=== PATIENT | male | born 1950 ===

== ENCOUNTER 2017-07-11 21:43 | Observation (INO) | payer OTHER, BC ==
[2017-07-11 22:04] VITALS: BMI 37.1
[2017-07-11] MEDS ORDERED: ASPIRIN 81 MG CHEWABLE TABLETS PO ONE (22:04)
--- NOTE | 2017-07-11 22:04 | PDOC ---
Rapid Medical Evaluation Time Seen by Provider: 07/11/17 21:55 Medical Evaluation: Allergies Allergy/AdvReac Type Severity Reaction Status Date / Time iodine Allergy Unverified 03/23/12 17:19 07/11/17 21:56 I have performed a brief in-person evaluation of this patient. The patient presents with a chief complaint of: pain to neck "cramp" and then chest pain and palpitations today. hx a-fib (on metoprolol), rotator cuff surgery, cervical disc replacements, a- flutter s/p ablation, television repairer francescone Pertinent physical exam findings: well appearing, afib on EKG, HR now 79 I have ordered the following:cardiac workup The patient will proceed to the ED for further evaluation. Discharge Disposition - Diagnosis Chest pain - Referrals - Patient Instructions - Post Discharge Activity
[2017-07-11] MEDS ORDERED: ASPIRIN 81 MG CHEWABLE TABLETS ONE (22:34)
[2017-07-11] MEDS ORDERED: dilTIAZem HCL 50 MG/10 ML - 10 ML VIAL IVPUSH ONE ×2 (22:58→23:25)
[2017-07-11 23:02] LABS: BASO % 1.3 % (0-2.0); EOS % 8.1 % (0-4.5); HEMATOCRIT 48.2 % (35.4-49); HEMOGLOBIN 16.5 GM/dL (11.7-16.9); LYMPH % 26.1 % (8-40); MCH 28.7 pg (25.7-33.7); MCHC 34.3 g/dl (32.0-35.9); MEAN CELL VOLUME 83.5 fl (80-96); MEAN PLT VOLUME 8.2 fl (7.5-11.1); NEUT % 55.5 % (42.8-82.8); PLATELET COUNT 243 K/MM3 (134-434); RBC 5.76 M/mm3 (4.00-5.60); RDW 13.9 % (11.9-15.9); WHITE BLOOD COUNT 12.2 K/mm3 (4.0-10.0)
[2017-07-11] MEDS ORDERED: dilTIAZem HCL 125 MG/25 ML - 25 ML VIAL ONE (23:06)
--- NOTE | 2017-07-11 23:10 | PDOC ---
History of Present Illness - General Chief Complaint: Pain Stated Complaint: AFIB COMPLICATION Time Seen by Provider: 07/11/17 21:55 - History of Present Illness Initial Comments: 07/11/17 23:04 CHIEF COMPLAINT: afib HISTORY OF PRESENT ILLNESS: 67 yo M with hx of a-fib (on metoprolol), rotator cuff surgery, cervical disc replacements, a-flutter s/p ablation, presents to ED with palpitations and chest discomfort s/p "really bad neck pain." Patient reports that he "always has the same problem, my neck starts to hurt and then I feel it in my chest and then I go into a-fib." On arrival patient's HR was 153 on EKG but 79 in RME, patient at this time states he is asymptomatic "and I don' t feel the a-fib anymore." Patient's crepe laminator operator is MD Barbosa. PAST MEDICAL HISTORY: as per HPI FAMILY HISTORY: Denies SOCIAL HISTORY: Denies tobacco, alcohol, illicit drug use. SURGICAL HISTORY: cardiac ablation, rotator cuff, cervical disc replacement ALLERGIES: iodine REVIEW OF SYSTEMS General/Constitutional: Denies fever or chills. Denies weakness, weight change. HEENT: Denies change in vision. Denies ear pain or discharge. Denies sore throat. Cardiovascular: Chest pain, palpitatoins. Respiratory: Denies cough, wheezing, or hemoptysis. Gastrointestinal: Denies nausea, vomiting, diarrhea or constipation. Denies rectal bleeding. Genitourinary: Denies dysuria, frequency, or change in urination. Musculoskeletal: Denies joint or muscle swelling or pain. Denies neck or back pain. Skin and breasts: Denies rash or easy bruising. Neurologic: Denies headache, vertigo, loss of consciousness, or loss of sensation. PHYSICAL EXAM General Appearance: Well-appearing, appropriately dressed. No apparent distress. HEENT: EOMI, PERRLA, normal ENT inspection, normal voice, TMs normal, pharynx normal. No conjunctival pallor. No photophobia, scleral icterus. Neck: Supple. Trachea midline. No tenderness, rigidity, carotid bruit, stridor , lymphadenopathy, or thyromegaly. Respiratory/Chest: Lungs CTAB. No shortness of breath, chest tenderness, respiratory distress, accessory muscle use. No crackles, rales, rhonchi, stridor , wheezing, dullness Cardiovascular: Tachy to 150-10s. Irregular rate and rhythm. Vascular Pulses: Dorsalis-Pedis (R): 2+, Dorsalis-Pedis (L): 2+ Gastrointestinal/Abdominal: Normal bowel sounds. Abdomen soft, non-distended. No tenderness or rebound tenderness. No organomegaly, pulsatile mass, guarding , hernia, hepatomegaly, splenomegaly. Lymphatic: No adenopathy, tenderness. Musculoskeletal/Extremities: Normal inspection. FROM of all extremities, normal capillary refill. Pelvis Stable. No CVA tenderness. No tenderness to extremities, pedal edema, swelling, erythema or deformity. Integumentary: Appropriate color, dry, warm. No cyanosis, erythema, jaundice or rash Neurologic: equipment engineering technician II-XII intact. Fully oriented, alert. Appropriate mood/affect. Motor strength 5/5. No appreciable EOM palsy, facial droop or sensory deficit. Past History - Past Medical History Allergies/Adverse Reactions: Allergies Allergy/AdvReac Type Severity Reaction Status Date / Time iodine Allergy Verified 07/11/17 21:59 Home Medications: Ambulatory Orders Aspirin [ASA -] 162 mg PO DAILY 07/11/17 Metoprolol Succinate [Toprol Xl -] 25 mg PO DAILY 07/11/17 Cardiac Disorders: Yes (A-fib) COPD: No - Surgical History Cardiac Surgery: Yes (Ablation for cardiac flutter) - Suicide/Smoking/Psychosocial Hx Smoking History: Never smoked Have you smoked in the past 12 months: No Information on smoking cessation initiated: No Hx Alcohol Use: No Drug/Substance Use Hx: No Substance Use Type: None *Physical Exam - Vital Signs Last Vital Signs Temp Pulse Resp BP Pulse Ox 98.3 F 149 H 20 122/68 96 07/11/17 22:00 07/12/17 01:50 07/11/17 23:44 07/12/17 01:50 07/11/17 23:44 ED Treatment Course - LABORATORY CBC & Chemistry Diagram: 07/11/17 22:45 07/11/17 22:45 - ADDITIONAL ORDERS Additional order review: Laboratory Results 07/11/17 07/11/17 22:45 22:45 PT with INR 10.70 INR 0.95 Sodium 140 Potassium 3.9 Chloride 104 Carbon Dioxide 27 Anion Gap 9 BUN 19 H Creatinine 1.1 Creat Clearance w eGFR > 60 Random Glucose 125 H Calcium 8.5 Magnesium 2.0 Total Bilirubin 0.5 AST 28 ALT 44 Alkaline Phosphatase 90 Creatine Kinase 297 Creatine Kinase Index 1.8 CK-MB (CK-2) 5.538 H Troponin I < 0.02 Total Protein 7.6 Albumin 3.7 07/11/17 22:45 RBC 5.76 H MCV 83.5 MCHC 34.3 RDW 13.9 MPV 8.2 Neutrophils % 55.5 Lymphocytes % 26.1 Monocytes % 9.0 Eosinophils % 8.1 H Basophils % 1.3 - RADIOLOGY Radiology Studies Ordered: Category Date Time Status CHEST PA & LAT [RAD] Stat Radiology 07/12/17 00:02 Taken - Medications Given in the ED: ED Medications Discontinued Medications Generic Name Dose Route Start Last Admin Trade Name Freq PRN Reason Stop Dose Admin Aspirin 162 mg 07/11/17 22:04 07/11/17 23:42 Asa - PO 07/11/17 22:05 Not Given ONCE ONE Diltiazem HCl 10 mg 07/11/17 22:58 07/11/17 23:27 Cardizem Injection - IVPUSH 07/11/17 22:59 10 mg ONCE ONE Administration Diltiazem HCl 30 mg 07/12/17 00:00 07/12/17 00:21 Cardizem - PO 30 mg Q6HPO KENDY Administration Diltiazem HCl 10 mg 07/11/17 23:25 07/11/17 23:41 Cardizem Injection - IVPUSH 07/11/17 23:26 10 mg ONCE ONE Administration Enoxaparin Sodium 100 mg 07/11/17 23:24 07/12/17 00:21 Lovenox - SQ 07/11/17 23:25 100 mg ONCE ONE Administration Diltiazem HCl 125 mg/ Dextrose 125 mls @ 5 mls/hr 07/12/17 00:45 07/12/17 01: 50 IVPB Not Given TITR KENDY Protocol 5 MG/HR Diltiazem HCl 125 mg/ Sodium 125 mls @ 5 mls/hr 07/12/17 01:15 07/12/17 01:49 Chloride IVPB Not Given TITR KENDY Protocol 5 MG/HR Medical Decision Making - Medical Decision Making 07/11/17 23:16 67 yo M with hx of a-fib (on metoprolol), rotator cuff surgery, cervical disc replacements, a-flutter s/p ablation, presents to ED with palpitations and chest discomfort s/p "really bad neck pain." -cardiac workup ordered in RME -EKG showing a-fib with HR 153 Patient HR now 150s-160s again. Will give Cardizem 10 mg IV. 07/11/17 23:31 Discussed case with [facility] Sorens[facility] Will admit to tele obs, patient is to receive cardizem po and anticoags for prophylaxis. Patient HR now 140-150s, will give another 10 mg Cardizem IVPUSH. -Lovenox -Cardizem po q6 Patient rate uncontrolled after cardizem IV and po, will start Cardizem drip. Notified Dr. Sorensen, patient will be admitted to inpatient tele. Discussed case with hospitalist MAITE Hollis who accepts patient for inpatient admission. *DC/Admit/Observation/Transfer Diagnosis at time of Disposition: Chest pain - Discharge Dispostion Admit: Yes - Referrals - Patient Instructions - Post Discharge Activity
[2017-07-11] MEDS ORDERED: ENOXAPARIN NA (PORCINE) 100 MG/1 ML DISP.SYRIN SQ ONE (23:24)
[2017-07-11 23:32] LABS: INR 0.95 (0.82-1.09); PROTHROMBIN TIME (PATIENT) 10.7 SEC (9.98-11.88)
[2017-07-11 23:44] LABS: ALBUMIN 3.7 g/dl (3.4-5.0); ANION GAP 9 (8-16); BILIRUBIN,TOTAL 0.5 mg/dL (0.2-1.0); BLOOD UREA NITROGEN 19 mg/dL (7-18); CALCIUM 8.5 mg/dL (8.5-10.1); CHLORIDE 104 mmol/L (98-107); CO2 27 mmol/L (21-32); CREATININE 1.1 mg/dL (0.7-1.3); GLUCOSE,RANDOM 125 mg/dL (74-106); POTASSIUM 3.9 mmol/L (3.5-5.1); SGOT/AST 28 U/L (15-37); SGPT/ALT 44 U/L (12-78); SODIUM 140 mmol/L (136-145); TOT PROT 7.6 g/dl (6.4-8.2)
[2017-07-11 23:46] LABS: ALK PHOS 90 U/L (45-117)
[2017-07-12] MEDS ORDERED: dilTIAZem HCL 30 MG TABLET (FP) PO SCH
[2017-07-12] MEDS ORDERED: ENOXAPARIN NA (PORCINE) 100 MG/1 ML DISP.SYRIN SQ ONE (00:09)
[2017-07-12] MEDS ORDERED: dilTIAZem HCL 30 MG TABLET (FP) ONE (00:09)
[2017-07-12] MEDS ORDERED: DILTIAZEM INJECTION 125 MG in DEXTROSE 5%-WATER - 100 ML IVPB SCH (00:45)
--- NOTE | 2017-07-12 00:51 | HP ---
CHIEF COMPLAINT: Chest Pain, Palpitations, Neck Pain PCP: Dr. Ziegler Building Tech: Dr. Brock Barbosa HISTORY OF PRESENT ILLNESS: This is a 67 y/o man who presents to the ED with chest pain, palpitations and neck pain x last night. Patient reports the neck pain started first, radiating to his trapezius, then LCW with palpitations. Patient took his metoprolol, 2 baby aspirins, then another dose of metoprolol without relief. Patient reports being at rest when the symptoms began. Patient denies fever, chills, cough, dizziness, SOB, AP, N/V/D, constipation, dysuria. Patient denies lower leg/calf pain Patient reports having an Echo recently, and was scheduled for a Stress test on Monday. ER course was notable for: (1) EKG- Afib with RVR 153 (2) Trop I 0.02 (3) WBC 12.2 Recent Travel: None PAST MEDICAL HISTORY: Afib (on Metoprolol) Aflutter PAST SURGICAL HISTORY: s/p Ablation ( 4-5yrs ago, [place]) Social History: Smoking: Pipe x 40 yrs ago Alcohol: Occasional Drugs: None Lives with , former Medic Family History: Father: Arrhythmia Mother: Breast Ca, DM Sister: DM Allergies iodine Allergy (Verified 07/11/17 21:59) HOME MEDICATIONS: Home Medications Medication Instructions Recorded Aspirin [ASA -] 162 mg PO DAILY 07/11/17 Metoprolol Succinate [Toprol Xl -] 25 mg PO DAILY 07/11/17 REVIEW OF SYSTEMS CONSTITUTIONAL: Absent: fever, chills, diaphoresis, generalized weakness, malaise, loss of appetite, weight change HEENT: Absent: rhinorrhea, nasal congestion, throat pain, throat swelling, difficulty swallowing, mouth swelling, ear pain, eye pain, visual changes CARDIOVASCULAR: chest pain ,palpitations, irregular heart rate Absent: syncope, lightheadedness, peripheral edema RESPIRATORY: Absent: cough, shortness of breath, dyspnea with exertion, orthopnea, wheezing, stridor, hemoptysis GASTROINTESTINAL: Absent: abdominal pain, abdominal distension, nausea, vomiting, diarrhea, constipation, melena, hematochezia GENITOURINARY: Absent: dysuria, frequency, urgency, hesitancy, hematuria, flank pain, genital pain MUSCULOSKELETAL: neck pain Absent: myalgia, arthralgia, joint swelling, back pain SKIN: Absent: rash, itching, pallor HEMATOLOGIC/IMMUNOLOGIC: Absent: easy bleeding, easy bruising, lymphadenopathy, frequent infections ENDOCRINE: Absent: unexplained weight gain, unexplained weight loss, heat intolerance, cold intolerance NEUROLOGIC: paresthesias Absent: headache, focal weakness, dizziness, unsteady gait, seizure, mental status changes, bladder or bowel incontinence PSYCHIATRIC: Absent: anxiety, depression, suicidal or homicidal ideation, hallucinations. PHYSICAL EXAMINATION Vital Signs - 24 hr 07/11/17 07/11/17 07/11/17 22:00 23:43 23:44 Temperature 98.3 F Pulse Rate 79 Pulse Rate [ 149 H Apical] Respiratory 18 20 20 Rate Blood Pressure 137/98 Blood Pressure 107/92 [Left Arm] O2 Sat by Pulse 97 96 96 Oximetry (%) GENERAL: Awake, alert, and fully oriented, in no acute distress. HEAD: Normal with no signs of trauma. EYES: Pupils equal, round and reactive to light, extraocular movements intact, sclera anicteric, conjunctiva clear. No lid lag. EARS, NOSE, THROAT: Ears normal, nares patent, oropharynx clear without exudates. Moist mucous membranes. NECK: Normal range of motion, supple without lymphadenopathy, JVD, or masses. LUNGS: Breath sounds equal, clear to auscultation bilaterally. No wheezes, and no crackles. No accessory muscle use. HEART: Irregular rate and rhythm, normal S1 and S2 without murmur, rub or gallop. ABDOMEN: Soft, obese, not distended, normoactive bowel sounds, no guarding, no rebound, no masses. No hepatomegaly or splenomegaly. LLQ tendeness MUSCULOSKELETAL: Normal range of motion at all joints. No bony deformities or tenderness. No CVA tenderness. UPPER EXTREMITIES: 2+ pulses, warm, well-perfused. No cyanosis. No clubbing. No peripheral edema. LOWER EXTREMITIES: 2+ pulses, warm, well-perfused. No calf tenderness. No peripheral edema. NEUROLOGICAL: Cranial nerves II-XII intact. Normal speech. Gait not observed. PSYCHIATRIC: Cooperative. Good eye contact. Appropriate mood and affect. SKIN: Warm, dry, normal turgor, no rashes or lesions noted, normal capillary refill. Laboratory Results - last 24 hr 07/11/17 07/11/17 22:45 22:45 WBC 12.2 H RBC 5.76 H Hgb 16.5 Hct 48.2 MCV 83.5 MCH 28.7 MCHC 34.3 RDW 13.9 Plt Count 243 MPV 8.2 Neutrophils % 55.5 Lymphocytes % 26.1 Monocytes % 9.0 Eosinophils % 8.1 H Basophils % 1.3 Sodium 140 Potassium 3.9 Chloride 104 Carbon Dioxide 27 Anion Gap 9 BUN 19 H Creatinine 1.1 Creat Clearance w eGFR > 60 Random Glucose 125 H Calcium 8.5 Magnesium 2.0 Total Bilirubin 0.5 AST 28 ALT 44 Alkaline Phosphatase 90 Creatine Kinase 297 Creatine Kinase Index 1.8 CK-MB (CK-2) 5.538 H Troponin I < 0.02 Total Protein 7.6 Albumin 3.7 ASSESSMENT/PLAN: This is a 67 y/o man with a PMHx of: Afib (on Metoprolol), Aflutter (ablation, [place]). Admitted to Telemetry for Atrial Fibrillation with RVR. Plan: 1. A-Fib with RVR - Cardiac Monitoring - Cardizem given in ED IV and PO rate unchanged, started on Cardizem Drip - Cardizem drip titrate - Lovenox given by ED per cardiology, will continue - Cardiology Consulted by ED SUPERVISOR ELEMENTARY EDUCATION - Chest xray- image no infiltrate, no effusion - [id number] 1 - Monitor CBC, BMP - Echo in am 2. Chest Pain - r/o ACS - HEART Score 4 - Continue cardiac monitoring - Serial Enzymes - Asa taken at home 162 - Continue Asa, BB - Appreciate Cardiology consult - Will add Lipitor 20mg 3. Aflutter - s/p Ablation 4. FEN - PO Fluids - Replete lytes - Low Na Diet 5. DVT Prophylaxis - OOB - SCDs - Lovenox SQ Code Status: Full Code Dispo: Requires Inpatient Care Problem List - Problem (1) Atrial fibrillation with RVR Code(s): I48.91 - UNSPECIFIED ATRIAL FIBRILLATION (2) Chest pain Code(s): R07.9 - CHEST PAIN, UNSPECIFIED (3) DVT prophylaxis Code(s): EYE7576 - Visit type - Emergency Visit Emergency Visit: Yes ED Registration Date: 07/11/17 Care time: The patient presented to the Emergency Department on the above date and was hospitalized for further evaluation of their emergent condition. - New Patient This patient is new to me today: Yes Date on this admission: 07/12/17 - Critical Care Critical Care patient: No
[2017-07-12] MEDS ORDERED: dilTIAZem HCL 50 MG/10 ML - 10 ML VIAL ONE (00:56)
[2017-07-12] MEDS ORDERED: dilTIAZem HCL 125 MG/25 ML - 25 ML VIAL ONE (00:56)
[2017-07-12] MEDS ORDERED: oxyCODONE HCL 5 MG TABLET PO PRN (01:29)
[2017-07-12] MEDS ORDERED: DILTIAZEM INJECTION 125 MG in SODIUM CHLORIDE 100 ML IVPB SCH (01:30)
[2017-07-12] MEDS: DILTIAZEM INJECTION 125 MG in SODIUM CHLORIDE 100 ML IVPB SCH ×2 (01:48→01:49)
[2017-07-12] MEDS ORDERED: SODIUM CHLORIDE 1,000 ML IV STA (05:56)
[2017-07-12 07:43] LABS: EOS % 8.4 % (0-4.5); HEMATOCRIT 47.1 % (35.4-49); HEMOGLOBIN 15.6 GM/dL (11.7-16.9); LYMPH % 38.9 % (8-40); MCH 28.2 pg (25.7-33.7); MCHC 33.2 g/dl (32.0-35.9); MEAN CELL VOLUME 84.8 fl (80-96); MEAN PLT VOLUME 8.2 fl (7.5-11.1); MONO % 9.5 % (3.8-10.2); NEUT % 42.2 % (42.8-82.8); PLATELET COUNT 239 K/MM3 (134-434); RBC 5.56 M/mm3 (4.00-5.60); RDW 13.9 % (11.9-15.9); WHITE BLOOD COUNT 11.9 K/mm3 (4.0-10.0)
[2017-07-12 07:50] LABS: CHLORIDE 103 mmol/L (98-107); POTASSIUM 4.4 mmol/L (3.5-5.1); SODIUM 140 mmol/L (136-145)
--- NOTE | 2017-07-12 07:57 | EKG ---
Test Reason : Blood Pressure : / mmHG Vent. Rate : 153 BPM Atrial Rate : 187 BPM P-R Int : 000 ms QRS Dur : 086 ms QT Int : 290 ms P-R-T Axes : 000 069 -10 degrees QTc Int : 463 ms ATRIAL TACHYCARDIA WITH RAPID VENTRICULAR RESPONSE variable AV block ABNORMAL ECG NO PREVIOUS ECGS AVAILABLE Confirmed by DELICIA VALLEJO, LUBA ([id number]) on 07/12/2017 7:57:22 AM Referred By: Confirmed By:LUBA NESBITT MD
--- NOTE | 2017-07-12 08:05 | EKG ---
Test Reason : Blood Pressure : / mmHG Vent. Rate : 062 BPM Atrial Rate : 062 BPM P-R Int : 164 ms QRS Dur : 096 ms QT Int : 396 ms P-R-T Axes : 027 031 010 degrees QTc Int : 401 ms SINUS RHYTHM WITH OCCASIONAL PREMATURE VENTRICULAR COMPLEXES OTHERWISE NORMAL ECG WHEN COMPARED WITH ECG OF 12-JUL-2017 00:18, SINUS RHYTHM HAS REPLACED ATRIAL FIBRILLATION VENT. RATE HAS DECREASED BY 78 BPM Confirmed by DELICIA VALLEJO, LUBA ([id number]) on 07/12/2017 8:05:31 AM Referred By: Confirmed By:LUBA NESBITT MD
--- NOTE | 2017-07-12 08:05 | EKG ---
Test Reason : Blood Pressure : / mmHG Vent. Rate : 140 BPM Atrial Rate : 120 BPM P-R Int : 000 ms QRS Dur : 086 ms QT Int : 272 ms P-R-T Axes : 000 064 -19 degrees QTc Int : 415 ms ATRIAL FIBRILLATION WITH RAPID VENTRICULAR RESPONSE ABNORMAL QRS-T ANGLE, CONSIDER PRIMARY T WAVE ABNORMALITY ABNORMAL ECG WHEN COMPARED WITH ECG OF 11-JUL-2017 21:48, NO SIGNIFICANT CHANGE WAS FOUND Confirmed by LUBA NESBITT MD ([id number]) on 07/12/2017 8:05:35 AM Referred By: Confirmed By:LUBA NESBITT MD
[2017-07-12 08:10] LABS: HDL CHOLESTEROL 40 mg/dL (40-60); LDL CHOLESTEROL (ONLY SJRH) 130 mg/dL (5-100)
[2017-07-12 08:14] LABS: ANION GAP 8 (8-16); BLOOD UREA NITROGEN 20 mg/dL (7-18); CALCIUM 8.6 mg/dL (8.5-10.1); CHOLESTEROL 211 mg/dL (50-200); CO2 29 mmol/L (21-32); GLUCOSE,RANDOM 99 mg/dL (74-106); MAGNESIUM 2.1 mg/dL (1.8-2.4); PHOSPHOROUS 4.6 mg/dL (2.5-4.9); TRIGLYCERIDES 304 mg/dL (35-160)
--- NOTE | 2017-07-12 08:55 | CON.CARD ---
Cardiology Consult (text) - Consultation Consultation Note: Cardiology Consult Dictated IMP: 1. PAF, now with episode RVR converted to NSR with Cardizem Breaking through beta uriel therapy 2. History of Aflutter ablation REC: 1. Re. AC: -Has been reluctant to take full AC, but now agrees after realizing that his episodes are likely more frequent. Will start Eliquis 5mg BID. 2. Re. Rate Control: -Cardizem very effective in terminating his AF. Switch to Cardizem CD 120mg daily. 3. Dispo: -Observe on tele through the afternoon. Echo today. If remains in NSR, ok d/c home w/ outpatient f/u. To consider AF ablation in future.
[2017-07-12] MEDS ORDERED: ASPIRIN 81 MG CHEWABLE TABLETS PO SCH (10:00)
--- NOTE | 2017-07-12 10:30 | CONS ---
CARDIOLOGY CONSULTATION DATE OF CONSULTATION: 07/12/2017 The consultation is requested by Dr. Solorzano for atrial fibrillation. Mr. Ross is my office patient, a 67-year-old male, history of mild hypertension and atrial flutter, status post ablation several years ago, now with paroxysmal atrial fibrillation. He has been maintained on aspirin therapy, due to his reluctance to take full anticoagulation and beta-uriel therapy. Over the last 3 to 4 months, he has experienced intermittent palpitations of short duration. Last evening developed atrial fibrillation with his typical symptoms of throat pounding, which began at around 5 p.m., prompting him to come to the ER. He was found to be in rapid atrial fibrillation at 140 beats per minute, which lasted until about 5 a.m. this morning, terminated to sinus rhythm with Cardizem drip. He is now asymptomatic. He denies chest pain, shortness of breath, palpitations, neurological deficits. He denies recent illnesses, apart from a minor URI 3 weeks ago. No long-distance travel on airplanes, other than a short trip to [place] around [place] (flight less than 4 hours). His past medical history is as above and includes mild aortic dilatation of about 3.9 cm which is stable. ALLERGIES: IODINE. MEDICATIONS AT HOME: Aspirin 162 daily; Toprol XL of 25 daily. FAMILY HISTORY: Noncontributory. SOCIAL HISTORY: He does drink alcohol and was drinking gin yesterday when this occurred. He does not smoke. PHYSICAL EXAMINATION: General: No distress. Alert. Oriented. Vital signs: Afebrile; temperature 98.2. Initial EKG showed atrial fibrillation, at 140 beats per minute, with nonspecific ST changes, currently in sinus rhythm at 63. Blood pressure is ranging between 96 to 100 systolic over 64, O2 saturation 96 on room air. Eyes: He is anicteric. Neck: No bruits or JVD. Heart: Regular without murmurs. Chest: Clear without rales. Abdomen: Soft. Extremities: No significant edema. EKGs are as above. LABORATORIES: White count 11.9, hematocrit 47, platelet count 239. INR is 10.7. Sodium is normal, potassium is normal. BUN/creatinine ratio is slightly elevated in a prerenal state of 20:1.0 indicating possible mild dehydration. Magnesium is 2.1. LFTs are normal. Troponin is negative x2 sets. IMPRESSION: 1. Paroxysmal atrial fibrillation, now with episode with rapid ventricular response terminated with intravenous Cardizem. 2. History of atrial flutter. Status post ablation. PLAN: 1. Regarding anticoagulation: The patient has been reluctant to take full anticoagulation in the past, but now is amenable given the frequency of his recurrent episodes. We will begin Eliquis 5 mg b.i.d. 2. Regarding rate control: He seems to be breaking through Toprol quite frequently; Cardizem is very effective in terminating his atrial fibrillation. Will switch to Cardizem CD 120 mg daily with the first dose today. If he remains in sinus rhythm over the next 8 to 12 hours, he may be discharged later today with outpatient followup. We will consider outpatient atrial fibrillation ablation. An echocardiogram has been ordered for today, as well as lower extremity venous Dopplers, low suspicion for DVT or PE at this time. Thank you for the consultation. Alondra [id number]
[2017-07-12] MEDS ORDERED: APIXABAN 5 MG TABLET PO SCH (11:00)
[2017-07-12] MEDS ORDERED: ENOXAPARIN NA (PORCINE) 100 MG/1 ML DISP.SYRIN SQ SCH (12:00)
--- NOTE | 2017-07-12 15:09 | DS ---
Physical Exam: SUBJECTIVE: Patient seen and examined OBJECTIVE: Vital Signs Period Temp Pulse Resp BP Sys/Tovar Pulse Ox Last 24 Hr 97.6 F-98.3 F 60-149 16-20 92-137/57-98 95-99 PHYSICAL EXAM GENERAL: The patient is awake, alert, and fully oriented, in no acute distress. HEAD: Normal with no signs of trauma. EYES: PERRL, extraocular movements intact, sclera anicteric, conjunctiva clear. ENT: Ears normal, nares patent, oropharynx clear without exudates, moist mucous membranes. NECK: Trachea midline, full range of motion, supple. LUNGS: Breath sounds equal, clear to auscultation bilaterally, no wheezes, no crackles, no accessory muscle use. HEART: Regular rate and rhythm, S1, S2 without murmur, rub or gallop. ABDOMEN: Soft, nontender, nondistended, normoactive bowel sounds, no guarding, no rebound, no hepatosplenomegaly, no masses. EXTREMITIES: 2+ pulses, warm, well-perfused, no edema. NEUROLOGICAL: Cranial nerves II through XII grossly intact. Normal speech, gait not observed. PSYCH: Normal mood, normal affect. SKIN: Warm, dry, normal turgor, no rashes or lesions noted. LABS Laboratory Results - last 24 hr 07/11/17 07/11/17 07/11/17 22:45 22:45 22:45 WBC 12.2 H RBC 5.76 H Hgb 16.5 Hct 48.2 MCV 83.5 MCH 28.7 MCHC 34.3 RDW 13.9 Plt Count 243 MPV 8.2 Neutrophils % 55.5 Lymphocytes % 26.1 Monocytes % 9.0 Eosinophils % 8.1 H Basophils % 1.3 PT with INR 10.70 INR 0.95 Sodium 140 Potassium 3.9 Chloride 104 Carbon Dioxide 27 Anion Gap 9 BUN 19 H Creatinine 1.1 Creat Clearance w eGFR > 60 Random Glucose 125 H Hemoglobin A1c % Calcium 8.5 Phosphorus Magnesium 2.0 Total Bilirubin 0.5 AST 28 ALT 44 Alkaline Phosphatase 90 Creatine Kinase 297 Creatine Kinase Index 1.8 CK-MB (CK-2) 5.538 H Troponin I < 0.02 Total Protein 7.6 Albumin 3.7 Triglycerides Cholesterol Total LDL Cholesterol HDL Cholesterol 07/12/17 07/12/17 07/12/17 05:57 06:06 06:06 WBC 11.9 H RBC 5.56 Hgb 15.6 Hct 47.1 MCV 84.8 MCH 28.2 MCHC 33.2 RDW 13.9 Plt Count 239 MPV 8.2 Neutrophils % 42.2 L D Lymphocytes % 38.9 D Monocytes % 9.5 Eosinophils % 8.4 H Basophils % 1.0 PT with INR INR Sodium 140 Potassium 4.4 Chloride 103 Carbon Dioxide 29 Anion Gap 8 BUN 20 H Creatinine 1.0 Creat Clearance w eGFR Random Glucose 99 D Hemoglobin A1c % 5.9 Calcium 8.6 Phosphorus 4.6 Magnesium 2.1 Total Bilirubin AST ALT Alkaline Phosphatase Creatine Kinase Creatine Kinase Index CK-MB (CK-2) Troponin I 0.03 D Total Protein Albumin Triglycerides 304 H Cholesterol 211 H Total LDL Cholesterol 130 H HDL Cholesterol 40 07/12/17 12:58 WBC RBC Hgb Hct MCV MCH MCHC RDW Plt Count MPV Neutrophils % Lymphocytes % Monocytes % Eosinophils % Basophils % PT with INR INR Sodium Potassium Chloride Carbon Dioxide Anion Gap BUN Creatinine Creat Clearance w eGFR Random Glucose Hemoglobin A1c % Calcium Phosphorus Magnesium Total Bilirubin AST ALT Alkaline Phosphatase Creatine Kinase Creatine Kinase Index CK-MB (CK-2) Troponin I 0.03 Total Protein Albumin Triglycerides Cholesterol Total LDL Cholesterol HDL Cholesterol HOSPITAL COURSE: Date of Admission:07/11/17 Date of Discharge: 07/12/17 Discharge Summary Reason For Visit: ATRIAL FIB Current Active Problems Atrial fibrillation with RVR (Acute) Chest pain (Acute) DVT prophylaxis (Acute) Condition: Improved - Instructions Diet, Activity, Other Instructions: Two prescriptions have been sent to your pharmacy, one for diltiazem and the other for Eliquis. Take these medications as directed. It is important you follow up with your component assembler supervisor, Dr. Barbosa, within 1- 2 weeks of your discharge. Return to the emergency department for any new or worsening symptoms. Referrals: Brock Barbosa MD [Staff Physician] - 1 Week Rocco Ziegler MD [Primary Care Provider] - Disposition: HOME - Home Medications Comprehensive Discharge Medication List: Ambulatory Orders Aspirin [ASA -] 162 mg PO DAILY 07/11/17 Apixaban [Eliquis -] 5 mg PO BID #60 tablet 07/12/17 Diltiazem Cd [Cardizem Cd -] 120 mg PO DAILY #30 cap.cd.24h 07/12/17
[2017-07-12 15:36] VITALS: BP 115/79; PULSE 82; TEMP 97.7
== END 2017-07-12 15:36 | disposition home or self-care (01) ==
LOC: JER 21:43 → MERGE 23:48 → INTOOBSV 23:48 → JERBED 23:48 → OBSVTOIN 23:48 → UNDOADMOB 07-12 00:03 → JERBED 07-12 00:03
PROVIDERS: ADMIT Internal Medicine; ATTEND Nurse Practitioner Acute Care
PROC: 3E033GC Introduction of Other Therapeutic Substance into Peripheral Vein, Percutaneous Approach (ICD-10-PCS; principal; 2017-07-11)
PROC: 3E0337Z Introduction of Electrolytic and Water Balance Substance into Peripheral Vein, Percutaneous Approach (ICD-10-PCS; 2017-07-11)
PROC: 3E013GC Introduction of Other Therapeutic Substance into Subcutaneous Tissue, Percutaneous Approach (ICD-10-PCS; 2017-07-11)
DX: R07.9 Chest pain, unspecified (principal); I48.0 Paroxysmal atrial fibrillation; Z86.79 Personal history of other diseases of the circulatory system
CPT/HCPCS: 36415; 71046-TC; 80048; 80053; 80061; 82550; 82553; 83036; 83721; 83735; 84100; 84484; 85025; 85610; 93005; 93010; 93306-TC; 93970-TC; 96361; 96374; 99285-25; G0378

== ENCOUNTER 2017-12-09 19:50 | Emergency (ER) | payer OTHER, BC ==
[2017-12-09 20:07] VITALS: BP 142/80; PULSE 82; TEMP 98.7; BMI 36.2
--- NOTE | 2017-12-09 20:15 | PDOC ---
History of Present Illness - General Chief Complaint: Pain, Acute Stated Complaint: PAIN Time Seen by Provider: 12/09/17 20:11 History Source: Patient Exam Limitations: No Limitations - History of Present Illness Initial Comments: 12/09/17 22:05 67-year-old male presents to the emergency department complaining of left lower leg pain 2 days. Patient states he cannot recall any injury/trauma. Pain is described as 4/10 achy nonradiating intermittent discomfort which is exacerbated on movement and alleviated at rest. Patient denies headache, dizziness, lightheadedness, chest pain, shortness of breath, neck/back pains, abdominal pains, extremity numbness or tingling sensation. Patient denies recent flight, prolonged sitting or recent surgery. Past History - Past Medical History Allergies/Adverse Reactions: Allergies Allergy/AdvReac Type Severity Reaction Status Date / Time iodine AdvReac Intermediate Itching Verified 12/09/17 20:07 TOPICAL IODINE(INJECTABLE IS Allergy Unknown Itching Uncoded 12/09/17 20:07 OK) Home Medications: Ambulatory Orders Metoprolol Succinate 25 mg PO ASDIR 12/09/17 Rivaroxaban [Xarelto -] 15 mg PO DAILY 12/09/17 Anemia: No Asthma: No Cardiac Disorders: Yes (A-fib) COPD: No - Surgical History Cardiac Surgery: Yes (Ablation for cardiac flutter) Neurologic Surgery: Yes (CERVICAL DISK REPLACEMENT) - Suicide/Smoking/Psychosocial Hx Smoking Status: Yes Smoking History: Never smoked Have you smoked in the past 12 months: No Number of Cigarettes Smoked Daily: 0 Information on smoking cessation initiated: No Hx Alcohol Use: No Drug/Substance Use Hx: No Substance Use Type: None, Alcohol Hx Substance Use Treatment: No Review of Systems - Review of Systems Able to Perform ROS?: Yes Comments:: 12/09/17 22:26 CONSTITUTIONAL: Absent: fever, chills, diaphoresis, generalized weakness, malaise, loss of appetite HEENT: Absent: rhinorrhea, nasal congestion, throat pain, throat swelling, difficulty swallowing, mouth swelling, ear pain, eye pain, visual Changes CARDIOVASCULAR: Absent: chest pain, loss of consciousness, palpitations, irregular heart rate, peripheral edema RESPIRATORY: Absent: cough, shortness of breath, dyspnea with exertion, orthopnea, wheezing, stridor, hemoptysis GASTROINTESTINAL: Absent: abdominal pain, abdominal distension, nausea, vomiting, diarrhea, constipation, melena, hematochezia GENITOURINARY: Absent: dysuria, frequency, urgency, hesitancy, hematuria, flank pain, genital pain MUSCULOSKELETAL: + Left calf pain/negative Homans sign Absent: myalgia, arthralgia, joint swelling SKIN: Absent: rash, itching, pallor HEMATOLOGIC/IMMUNOLOGIC: Absent: easy bleeding, easy bruising, lymphadenopathy, frequent infections ENDOCRINE: Absent: unexplained weight gain, unexplained weight loss, heat intolerance, cold intolerance NEUROLOGIC: Absent: headache, focal weakness or paresthesias, dizziness, unsteady gait, seizure, mental status changes, bladder or bowel incontinence PSYCHIATRIC: Absent: anxiety, depression, suicidal or homicidal ideation, hallucinations. GENERAL: Well developed, well nourished. Awake and alert. No acute distress. HEENT: Normocephalic, atraumatic. PERRLA, EOMI. No conjunctival pallor. Sclera are non- icteric. Moist mucous membranes. Oropharynx is clear. NECK: Supple. Full ROM. No JVD. Carotid pulses 2+ and symmetric, without bruits. No thyromegaly. No lymphadenopathy. CARDIOVASCULAR: Regular rate and rhythm. No murmurs, rubs, or gallops. Distal pulses are 2+ and symmetric. PULMONARY: No evidence of respiratory distress. Lungs clear to auscultation bilaterally. No wheezing, rales or rhonchi. ABDOMINAL: Soft. Non-tender. Non-distended. No rebound or guarding. No organomegaly. Normoactive bowel sounds. MUSCULOSKELETAL Normal range of motion at all joints. No bony deformities or tenderness. No CVA tenderness. EXTREMITIES: No cyanosis. No clubbing. No edema. No calf tenderness. SKIN: Warm and dry. Normal capillary refill. No rashes. No jaundice. NEUROLOGICAL: Alert, awake, appropriate. Cranial nerves 2-12 intact. No deficits to light touch and temperature in face, upper extremities and lower extremities. No motor deficits in the in face, upper extremities and lower extremities. Normoreflexic in the upper and lower extremities. Normal speech. Toes are down- going bilaterally. Gait is normal without ataxia. Left knee/ankle Full range of motion No swelling No obvious deformity Left calf Point tenderness to the insertion of gastrocnemius Negative Homans sign Is the patient limited Kyrgyz proficient: No *Physical Exam - Vital Signs Last Vital Signs Temp Pulse Resp BP Pulse Ox 98.7 F 82 16 142/80 100 12/09/17 20:04 12/09/17 20:04 12/09/17 20:04 12/09/17 20:04 12/09/17 20:04 ED Treatment Course - RADIOLOGY Radiology Studies Ordered: Category Date Time Status DUPLEX VASCUL US-1 LEG [US] Stat Ultrasound 12/09/17 20:14 Ordered Radiograph Interpretation: 12/09/17 22:04 Duplex LLE: neg for DVT *DC/Admit/Observation/Transfer Diagnosis at time of Disposition: Leg swelling - Discharge Dispostion Disposition: HOME Condition at time of disposition: Stable Decision to Admit order: No - Referrals Referrals: Rocco Ziegler MD [Primary Care Provider] - - Patient Instructions Printed Discharge Instructions: DI for Leg Pain Additional Instructions: Ice; 20 mins on alternating with 20 mins off for 48 hours while awake. Rest Elevate Follow up with your orthopedic surgeon or the one listed on the discharge form. Return to the ER for severe/persistent/worsening symptoms, extremity numbness/ tingling sensation. - Post Discharge Activity
== END 2017-12-09 22:27 | disposition home or self-care (01) ==
LOC: JERFT 19:50
DX: R60.0 Localized edema (principal); I48.91 Unspecified atrial fibrillation; Z79.01 Long term (current) use of anticoagulants
CPT/HCPCS: 93971-TC; 99281-25